=== PATIENT | female | born 2000 | race Caucasian/White ===

== ENCOUNTER 2021-06-22 12:35 | Outpatient (CLI) | payer BC, OTHER, SELFPAY ==
--- NOTE | ~2021-06-22 | XR_ITS ---
EXAMINATION: XR fl inj shoulder RT - MR/CT DATE: 06/22/2021 13:46 INDICATION: Acute right shoulder pain. No previous surgery or dislocation. TECHNIQUE: A time-out was performed to verify the patient's name, date of , and procedure to b e performed. The procedure including the risks, benefits, and alternatives was discussed with the pat ient. Risks discussed included bleeding and infection. The patient understood the risks and agreed to proceed. The skin overlying the right glenohumeral joint was prepped and draped in usual sterile fas hion. Anesthetic was administered with 1% lidocaine subcutaneously. A 22 G needle was advanced unde r fluoroscopic guidance into the joint. Subsequently, injectate consisting of 12 mL of 1:200 Multiha nce, 1:4 1% lidocaine, and 1:4 Omnipaque 240 was instilled. The needle was removed and the entry sit e was cleaned and dressed. There were no immediate complications. Fluoroscopy exposure time was 0.0 minutes. The total number of images was 3. FINDINGS: Real-time fluoroscopy demonstrates the needle and contrast in the right glenohumeral joint. IMPRESSION: 1. Successful right glenohumeral joint injection of contrast for subsequent MR arthrography. Reviewed, dictated and finalized at location A. 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
--- NOTE | ~2021-06-22 | MR_ITS ---
EXAMINATION: MR shoulder RT w con DATE: 06/22/2021 14:49 INDICATION: Acute right shoulder pain. TECHNIQUE: Magnetic resonance imaging (MRI) of the right shoulder was performed without intravenous c ontrast after intra-articular injection of contrast (MR arthrogram). Sequences included axial T1-weig hted FS FSE and T2-weighted FS FSE, coronal-oblique T1-weighted FS FSE and T2-weighted FS FSE, sagitt al-oblique T1-weighted FSE and T2-weighed FS FSE, and ABER T1-weighted FS FSE. COMPARISON: None. FINDINGS: Coracoacromial arch: The acromion undersurface is curved in morphology (type II). The acromioclavicular joint is normal. T here is a small chronic partial tear of the deltoid attachment to the acromion with tiny fluid collec tion at the site of the tear. There is mild subacromial/subdeltoid bursitis. Rotator cuff: There is mild supraspinatus tendinopathy with shallow articular-sided fraying. Infraspinatus, teres m inor, and subscapularis tendons are normal. There is no asymmetric fatty atrophy of the rotator cuff muscle bellies. Biceps tendon and glenoid labrum: Biceps tendon is in bicipital groove. Intra-articular biceps tendon is normal. There is a tear of the anterosuperior glenoid labrum from 12:00 to 3:00 (SLAP tear). Fluid: The glenohumeral joint is well distended by contrast. Bones/cartilage: The glenoid cartilage is normal. The humeral head cartilage is normal. IMPRESSION: 1. SLAP tear. 2. Mild supraspinatus tendinopathy with shallow articular-sided fraying. Reviewed, dictated and finalized at location A. R FORENSICS ANALYST
== END 2021-06-22 12:36 | disposition home or self-care (01) ==
LOC: ANHIMG 12:48
PROVIDERS: PCP Orthopaedic Surgery; Visit Provider Orthopaedic Surgery
DX: M25.511 Pain in right shoulder (principal)
CPT/HCPCS: 23350; 73222; 77002; A9577; Q9966

== ENCOUNTER 2022-08-22 08:45 | Outpatient (CLI) | payer BC, OTHER, SELFPAY ==
--- NOTE | ~2022-08-22 | XR_ITS ---
EXAMINATION: XR fl inj shoulder RT - MR/CT DATE: 08/22/2022 09:50 INDICATION: Right shoulder pain. Labral tear. No prior surgery or dislocation. TECHNIQUE: A time-out was performed to verify the patient's name, date of , and procedure to b e performed. The procedure including the risks, benefits, and alternatives was discussed with the pat ient. Risks discussed included bleeding and infection. The patient understood the risks and agreed to proceed. The skin overlying the right glenohumeral joint was prepped and draped in usual sterile fas hion. Anesthetic was administered with 1% lidocaine subcutaneously. A 22 G needle was advanced unde r fluoroscopic guidance into the joint. Subsequently, injectate consisting of 12 mL of 1:200 Multiha nce, 1:4 1% lidocaine, and 1:4 Omnipaque 240 was instilled. The needle was removed and the entry sit e was cleaned and dressed. There were no immediate complications. Fluoroscopy exposure time was 0.1 minutes. The total number of images was 3. FINDINGS: Real-time fluoroscopy demonstrates the needle and contrast in the right glenohumeral joint. IMPRESSION: 1. Successful right glenohumeral joint injection of contrast for subsequent MR arthrography. Reviewed, dictated and finalized at location A. ISITION PROFESSIONAL
--- NOTE | ~2022-08-22 | MR_ITS ---
EXAMINATION: MR shoulder RT w con DATE: 08/22/2022 10:24 INDICATION: Right shoulder pain TECHNIQUE: Magnetic resonance imaging (MRI) of the right shoulder was performed following intra-nirmala cular gadolinium contrast injection and without intravenous contrast. Details of the glenohumeral caren nt injection have been dictated separately. Sequences included axial T2-weighted FS FSE, axial T1-we ighted FS FSE, coronal oblique T1-weighted FS FSE, coronal oblique T2-weighted FSE, sagittal T2-weigh malgorzata FS FSE, sagittal T1-weighted FSE, and ABER (abduction external rotation) T1-weighted FS FSE. COMPARISON: None. FINDINGS: Coracoacromial arch: The acromion undersurface is curved in morphology (type II). The coracoacromial ligament is normal. A cromioclavicular joint is normal. Rotator cuff: The supraspinatus, infraspinatus and teres minor tendons are normal. The subscapularis is normal. Nor mal rotator cuff muscle bulk and signal. Biceps tendon, glenoid labrum and glenohumeral cartilage: Long head of the biceps tendon is intact. Tear versus degeneration of the anterior to anterosuperior glenoid labrum which appears small with frayed margins. Glenohumeral cartilage is normal. Bones and other: Normal marrow signal with no edema, fracture or abnormal marrow replacing process. Diminutive middle glenohumeral ligament. There are few injected low signal intensity gas bubbles in the nondependent fi lled joint space. No abnormal fluid in the subacromial/subdeltoid bursa to suggest bursitis. IMPRESSION: 1. Tear versus degeneration of the anterior to anterosuperior glenoid labrum which appears small with frayed margins. Reviewed, dictated and finalized at location A. GRADER IMPRESSION: 1. Tear versus degeneration of the anterior to anterosuperior glenoid labrum wh ich appears small with frayed margins.
== END 2022-08-22 08:46 | disposition home or self-care (01) ==
PROVIDERS: PCP Orthopaedic Surgery; Visit Provider Orthopaedic Surgery
DX: M25.511 Pain in right shoulder (principal)
CPT/HCPCS: 23350; 73222; 77002; A9577; Q9966

== ENCOUNTER 2023-12-18 10:21 | Outpatient (CLI) | payer BC, SELFPAY ==
--- NOTE | ~2023-12-18 | US_ITS ---
EXAMINATION: US pelvic complete DATE: 12/18/23 INDICATION: Excessive and frequent menstruation with regular cycle. TECHNIQUE: Multiple transabdominal sonographic images of the pelvis were obtained. COMPARISON: None. FINDINGS: The uterus measures 8.9 x 3.9 x 5.8 cm. There is physiologic free fluid in the pelvis. The endometria l complex measures 19 mm in thickness. The right ovary measures 3.6 x 2.4 x 3.7 cm. The left ovary me asures 3.0 x 2.6 x 3.0 cm. There is normal vascular flow in the ovaries. IMPRESSION: 1. Thickened endometrial complex, which may be seen with endometrial hyperplasia or polyp. Reviewed, dictated and finalized at location A. IMPRESSION: 1. Thickened endometrial complex, which may be seen with endometrial hyperplasi a or polyp.
== END 2023-12-18 10:22 ==
PROVIDERS: PCP Nurse Practitioner Women's Health; Visit Provider Nurse Practitioner Women's Health
DX: N92.0 Excessive and frequent menstruation with regular cycle (principal); R93.89 Abnormal findings on diagnostic imaging of other specified body structures
CPT/HCPCS: 76856